=== PATIENT | male | born 1955 | race Caucasian/White ===

== ENCOUNTER 2017-04-01 23:14 | Emergency (ER) | payer MEDICAID, OTHER ==
[~2017-04-01] VITALS: Ht 165.1 cm; Wt 65.0 kg
[~2017-04-01 23:14] MED LIST: CLOP75 PO; ECOT81TA2 PO; FURO20 PO; KCL20 PO; LISI20 PO; METO25 PO; SPIR25 PO
[2017-04-01 23:17] VITALS: BP 238/123; PULSE 102; RESP 18; TEMP 97.9; O2SAT 96
--- NOTE | 2017-04-02 00:24 | PD ---
HPI Chief Complaint: Medical Clearance Time Seen by Provider: 23:37 Travel History International Travel<30 days: No Contact w/Intl Traveler<30days: No Traveled to known affect area: No History of Present Illness HPI Patient is a 61 year old male who presents to the ER with c/o of homelessness. Patient request a warm place to sleep as there are no homeless shelters who can take him in tonight. Reports that he has been homeless for the past 4 days and needs a place to stay as it's 47 degrees outside and he's afraid to freeze to . Patient with no medical complaints at this time. PFSH Past Medical History Heart Rhythm Problems: Yes (VTACH) Cardiac Catheterization: Yes Cardiovascular Problems: Yes (CHF) Congestive Heart Failure: Yes Hypertension: Yes (UNCONTROLLED/ NO MEDS ) Past Surgical History Coronary Stent: Yes Social History Alcohol Use: Yes (FEW/WEEK) Tobacco Use: Yes (LESS THAN PPD) Substance Use: No Allergies-Medications (Allergen,Severity, Reaction): Coded Allergies: No Known Allergies (Unverified Adverse Reaction, Unknown, 04/01/17) Reported Meds & Prescriptions Reported Meds & Active Scripts Active No Active Prescriptions or Reported Medications Review of Systems General / Constitutional: No: Fever Eyes: No: Visual changes HENT: No: Headaches Cardiovascular: No: Chest Pain or Discomfort Respiratory: No: Shortness of Breath Gastrointestinal: No: Abdominal Pain Genitourinary: No: Dysuria Musculoskeletal: No: Pain Skin: No Rash Neurologic: No: Weakness Psychiatric: No: Depression, Suicidal Ideations, Substance Abuse, Homicidal Ideation Endocrine: No: Polydipsia Hematologic/Lymphatic: No: Easy Bruising Physical Exam Narrative GENERAL: Well-nourished, well-developed patient. SKIN: Focused skin assessment warm/dry. HEAD: Normocephalic. EYES: No scleral icterus. No injection or drainage. NECK: Supple, trachea midline. No JVD or lymphadenopathy. CARDIOVASCULAR: Regular rate and rhythm without murmurs, gallops, or rubs. RESPIRATORY: Breath sounds equal bilaterally. No accessory muscle use. GASTROINTESTINAL: Abdomen soft, non-tender, nondistended. PSYCH: denies si/hi Data Data Last Documented VS Vital Signs Date Time Temp Pulse Resp B/P (MAP) Pulse Ox O2 Delivery O2 Flow Rate FiO2 04/01/17 23:17 97.9 102 18 238/123 (161) 96 Room Air MDM Medical Decision Making Medical Screen Exam Complete: Yes Emergency Medical Condition: No Interpretation(s) Vital Signs Date Time Temp Pulse Resp B/P (MAP) Pulse Ox O2 Delivery O2 Flow Rate FiO2 04/01/17 23:17 97.9 102 18 238/123 (161) 96 Room Air Differential Diagnosis homelessness Narrative Course Patient is a 61 year old male who presents to the ER with c/o of homelessness. Patient request a warm place to sleep as there are no homeless shelters who can take him in tonight. Reports that he has been homeless for the past 4 days and needs a place to stay as it's 47 degrees outside and he's afraid to freeze to . Patient with no medical complaints at this time. Diagnosis Primary Impression: Homelessness Patient Instructions: General Instructions Scripts No Active Prescriptions or Reported Meds Disposition: 01 DISCHARGE HOME Condition: Stable Leyla Nunes DO Apr 02, 2017 00:24
[2017-04-02 00:36] VITALS: BP 176/98; PULSE 93; RESP 18; O2SAT 97
[2017-04-02] MEDS ORDERED: ALBUAER3 INH (00:39)
== END 2017-04-02 00:46 | disposition home or self-care (01) ==
LOC: NEPD 23:14
DX: Z59.0 Homelessness (principal); I11.0 Hypertensive heart disease with heart failure; I50.9 Heart failure, unspecified; Z95.5 Presence of coronary angioplasty implant and graft; F17.200 Nicotine dependence, unspecified, uncomplicated
CPT/HCPCS: 99283